=== PATIENT | male | born 1970 | race African-American/Black ===

== ENCOUNTER 2017-01-29 16:03 | Emergency (ER) | payer MEDICAID, OTHER ==
[~2017-01-29] VITALS: Ht 162.6 cm; Wt 59.0 kg
[2017-01-29 17:24] VITALS: BP 162/106
== END 2017-01-29 20:10 | disposition left against medical advice (07) ==
LOC: ER 16:03
DX: M79.671 Pain in right foot (principal); Z53.21 Procedure and treatment not carried out due to patient leaving prior to being seen by health care provider